=== PATIENT | male | born 1955 | race Caucasian/White ===

== ENCOUNTER → 2021-12-25 | Outpatient (CLI) | payer MEDICARE | LOC: KOH-I 13:45 | DX: M51.16 Intervertebral disc disorders with radiculopathy, lumbar region (principal) | CPT/HCPCS: 72148 ==

== ENCOUNTER → 2022-02-19 | Outpatient (CLI) | payer MEDICARE | LOC: KOH-I 02-18 11:15 | DX: M48.061 Spinal stenosis, lumbar region without neurogenic claudication (principal); M51.36 Other intervertebral disc degeneration, lumbar region | CPT/HCPCS: 72131 ==

== ENCOUNTER → 2022-02-25 | Outpatient (CLI) | payer MEDICARE ==
[~2022-02-25] MED LIST: ASPIRIN CHEWABL81 MG PO; BRILINTA90 MG PO; CYMBALTA60 MG PO; HYDROCODON-ACE1 EAC6 PO; LEVEMIR FL100 UNIT/1 SQ; LISINOPRIL20 MG PO; NEURONTIN300 MG PO; OMEPRAZOLE20 MG PO; RANEXA500 MG PO; VIT C
[2022-02-25 11:34] LABS: RED BLOOD COUNT 4.43 M/UL (4.20-5.50); WHITE BLOOD COUNT 8.3 K/UL (4.5-11.0)
== END ==
LOC: EDSTATUS 10:00 → OPSV2 10:00
PROVIDERS: Physician Assistant
DX: Z01.818 Encounter for other preprocedural examination (principal); M54.16 Radiculopathy, lumbar region; M48.061 Spinal stenosis, lumbar region without neurogenic claudication
CPT/HCPCS: 71045; 80048; 81001; 83036; 85025; 85610; 85730; 87081; 93005

== ENCOUNTER 2022-03-10 05:06 | Inpatient (IN) | payer MEDICARE, OTHER ==
[~2022-03-10] VITALS: Ht 167.6 cm; Wt 100.2 kg
[2022-03-10 13:03] LABS: HEMOGLOBIN 9.9 gm/dl (14.0-17.5)
[2022-03-10 17:58] LABS: HEMOGLOBIN 11.7 gm/dl (14.0-17.5); RED BLOOD COUNT 3.72 M/UL (4.20-5.50); WHITE BLOOD COUNT 8.4 K/UL (4.5-11.0)
[2022-03-10 18:23] LABS: BUN/CREATININE RATIO 21 (0-10)
[2022-03-11 05:38] LABS: HEMOGLOBIN 10.3 gm/dl (14.0-17.5); WHITE BLOOD COUNT 9.9 K/UL (4.5-11.0)
[2022-03-11 05:41] LABS: RED BLOOD COUNT 3.33 M/UL (4.20-5.50)
[2022-03-11 06:20] LABS: BUN/CREATININE RATIO 23 (0-10)
[2022-03-11 16:09] LABS: HEMOGLOBIN 9.2 gm/dl (14.0-17.5)
[2022-03-12 03:57] LABS: HEMOGLOBIN 9.3 gm/dl (14.0-17.5); RED BLOOD COUNT 3.01 M/UL (4.20-5.50); WHITE BLOOD COUNT 8.6 K/UL (4.5-11.0)
[2022-03-12 04:50] LABS: BUN/CREATININE RATIO 18 (0-10)
[2022-03-13 05:36] LABS: HEMOGLOBIN 9.4 gm/dl (14.0-17.5); RED BLOOD COUNT 3.01 M/UL (4.20-5.50); WHITE BLOOD COUNT 7.1 K/UL (4.5-11.0)
[2022-03-13 05:59] LABS: BUN/CREATININE RATIO 13 (0-10)
[2022-03-14 05:27] LABS: HEMOGLOBIN 7.9 gm/dl (14.0-17.5)
[2022-03-14 05:29] LABS: RED BLOOD COUNT 2.54 M/UL (4.20-5.50); WHITE BLOOD COUNT 5.3 K/UL (4.5-11.0)
[2022-03-14 06:00] LABS: BUN/CREATININE RATIO 12 (0-10)
[2022-03-15 03:40] LABS: HEMOGLOBIN 9.2 gm/dl (14.0-17.5); WHITE BLOOD COUNT 5.4 K/UL (4.5-11.0)
[2022-03-15 03:41] LABS: RED BLOOD COUNT 2.96 M/UL (4.20-5.50)
[2022-03-15 03:59] LABS: BUN/CREATININE RATIO 16 (0-10)
[2022-03-16 04:56] LABS: HEMOGLOBIN 9.6 gm/dl (14.0-17.5); RED BLOOD COUNT 3.07 M/UL (4.20-5.50); WHITE BLOOD COUNT 6.2 K/UL (4.5-11.0)
[2022-03-16 05:22] LABS: BUN/CREATININE RATIO 18 (0-10)
== END 2022-03-16 12:02 | disposition home or self-care (01) | DRG 454 ==
LOC: OR 05:06 → CCU 18:53
PROVIDERS: Internal Medicine; ADMIT Orthopaedic Surgery
PROC: 01NB0ZZ Release Lumbar Nerve, Open Approach (ICD-10-PCS; 2022-03-10)
PROC: 01NR0ZZ Release Sacral Nerve, Open Approach (ICD-10-PCS; 2022-03-10)
PROC: 0SB20ZZ Excision of Lumbar Vertebral Disc, Open Approach (ICD-10-PCS; 2022-03-10)
PROC: 0SB40ZZ Excision of Lumbosacral Disc, Open Approach (ICD-10-PCS; 2022-03-10)
PROC: 0SG3071 Fusion of Lumbosacral Joint with Autologous Tissue Substitute, Posterior Approach, Posterior Column, Open Approach (ICD-10-PCS; 2022-03-10)
PROC: 4A11X4G Monitoring of Peripheral Nervous Electrical Activity, Intraoperative, External Approach (ICD-10-PCS; 2022-03-10)
PROC: 30233N1 Transfusion of Nonautologous Red Blood Cells into Peripheral Vein, Percutaneous Approach (ICD-10-PCS; 2022-03-10)
PROC: 30233L1 Transfusion of Nonautologous Fresh Plasma into Peripheral Vein, Percutaneous Approach (ICD-10-PCS; 2022-03-10)
PROC: 0SG10AJ Fusion of 2 or more Lumbar Vertebral Joints with Interbody Fusion Device, Posterior Approach, Anterior Column, Open Approach (ICD-10-PCS; principal; 2022-03-10 07:30)
PROC: 0SG30AJ Fusion of Lumbosacral Joint with Interbody Fusion Device, Posterior Approach, Anterior Column, Open Approach (ICD-10-PCS; principal; 2022-03-10 07:30)
PROC: 0SG1071 Fusion of 2 or more Lumbar Vertebral Joints with Autologous Tissue Substitute, Posterior Approach, Posterior Column, Open Approach (ICD-10-PCS; 2022-03-10 07:30)
PROC: B24BZZZ Ultrasonography of Heart with Aorta (ICD-10-PCS; 2022-03-13)
DX: M48.061 Spinal stenosis, lumbar region without neurogenic claudication (principal); D62 Acute posthemorrhagic anemia; Z20.822 Contact with and (suspected) exposure to COVID-19; J98.11 Atelectasis; Z68.41 Body mass index [BMI] 40.0-44.9, adult; M47.896 Other spondylosis, lumbar region; M51.16 Intervertebral disc disorders with radiculopathy, lumbar region; E11.9 Type 2 diabetes mellitus without complications; I25.10 Atherosclerotic heart disease of native coronary artery without angina pectoris; E78.5 Hyperlipidemia, unspecified; I95.2 Hypotension due to drugs; G89.29 Other chronic pain; M54.9 Dorsalgia, unspecified; E66.01 Morbid (severe) obesity due to excess calories; F41.9 Anxiety disorder, unspecified; T40.2X5A Adverse effect of other opioids, initial encounter; K21.9 Gastro-esophageal reflux disease without esophagitis; I48.91 Unspecified atrial fibrillation; E86.1 Hypovolemia; Z79.01 Long term (current) use of anticoagulants; Z90.49 Acquired absence of other specified parts of digestive tract; Z95.1 Presence of aortocoronary bypass graft; Z98.890 Other specified postprocedural states; Z87.891 Personal history of nicotine dependence; Z83.3 Family history of diabetes mellitus; Z80.0 Family history of malignant neoplasm of digestive organs; Z82.49 Family history of ischemic heart disease and other diseases of the circulatory system; Z95.5 Presence of coronary angioplasty implant and graft; Z79.4 Long term (current) use of insulin
CPT/HCPCS: ECHO; 36415; 36430; 71045; 72100; 72110; 76000; 80048; 80053; 82550; 82553; 82962; 83605; 83735; 83880; 84439; 84443; 84484; 85014; 85018; 85025; 86850; 86900; 86901; 86920; 86927; 93005; 93306; 93925; 97110-GP-CQ; 97116-GP-CQ; 97161; 97166; 97530; 97530-GP-CQ; 97535; C1713; C1762; J0690; J1040; J1100; J1170; J1200; J1885; J2370; J2405; J2704; J2710; J3010; J3370; J3475; J7030; J7040; J7050; J7120; P9016; P9017; P9045; P9047